=== PATIENT | female | born 1965 | race Caucasian/White ===

== ENCOUNTER 2016-07-10 19:19 | Emergency (ER) | payer SELFPAY ==
[~2016-07-10] VITALS: Ht 152.4 cm; Wt 46.3 kg
[~2016-07-10 19:19] MED LIST: AMOX500T2 PO; CEPH-507 PO; CEPH500C PO; DIPH25CA79 PO; DIPH25TA82 PO; DIPH50CA33 PO; DOXY100C2 PO; HYDR-1231 PO; HYDR-34 PO; HYDR-3730 PO; HYDR-757 PO; IBUP-1773 PO; METH4TAB PO; NAPR-243 PO; NAPR220C11 PO; NITR-65 PO; NITR100C3 PO; ONDA-42 SL; ONDA8TAB9 PO; PRM25T PO; SULF1TAB38 PO; TRAM50TA2 PO; TRM50T PO
--- NOTE | 2016-07-10 20:36 | Diagnostic Imaging Report ---
INDICATION: Bilateral wrist pain for one week. One week ago had tire fall on the wrists, is unable to move or bend the wrists. COMPARISON STUDY: Right hand from 2015. FINDINGS: Three views of the right wrist demonstrate normal ossification. No fracture or dislocation is present. Three views of the left wrist demonstrate normal ossification. No fracture or dislocation is present. IMPRESSION: Normal bilateral wrists. Dictated by: Dictated on workstation # [id number]
[2016-07-10] MEDS ORDERED: METH4TAB PO (20:46)
--- NOTE | 2016-07-10 20:48 | ED Upper Extremity ---
General Chief Complaint: Upper Extremity Stated Complaint: PAIN IN BOTH WRIST Nursing Triage Note: parent reports bilateral wrist pain x 1 week, states 1 week ago she had a tire fall on them Nursing Sepsis Screen: No Definite Risk Source: patient (DIFFICULT TO KEEP ON SUBJECT) History of Present Illness Time seen by provider: 20:00 Initial Comments C/O BILATERAL WRIST PAIN STATES SHE "FELL IN A PIT" AND LANDED ON OUTSTRETCHED HANDS--OCCURRED 1 1/2 WEEKS AGO DENIES ANY OTHER INJURIES NO PARESTHESIAS OR MOTOR DEFICITS HAS NOT TAKEN ANYTHING FOR PAIN HAS NOT SOUGHT CARE UNTIL TODAY SYMPTOMS NO DIFFERENT TODAY PT STATES SHE USES BOTH HANDS EQUALLY STATES SHE THINKS THEY ARE SPRAINED AND WANTS BRACES ON WRISTS Allergies and Home Medications Allergies Coded Allergies: Sulfa (Sulfonamide Antibiotics) (Verified Allergy, Unknown, 07/13/05) Home Medications Diphenhydramine HCl 25 Mg Capsule, 25 MG PO DAILY, (Reported) Methylprednisolone 4 Mg Tab.ds.pk, 4 MG PO UD, #1 Prescribed by: CARLEY JAY on 07/10/162045 Constitutional: no symptoms reported Musculoskeletal: see HPI Skin: no symptoms reported Psychiatric/Neurological: No Symptoms Reported Past [id number] Hx Patient Social History Alcohol Use: Denies Use Recreational Drug Use: No Smoking Status: Current Everyday Smoker Type Used: Cigarettes Recent Foreign Travel: No Contact w/Someone Who Travel: No Recent Infectious Disease Expo: No Recent Hopitalizations: No Immunizations Up To Date Tetanus Booster (TDap): Unknown Date of Influenza Vaccine: Dec 13, 2014 Seasonal Allergies Seasonal Allergies: No Surgeries HX Surgeries: Yes Surgeries: Gallbladder, Hysterectomy Respiratory Hx Respiratory Disorders: Yes Respiratory Disorders: Asthma Cardiovascular Hx Cardiac Disorders: No Neurological Hx Neurological Disorders: No Reproductive System Hx Reproductive Disorders: No Sexually Transmitted Disease: No HIV/AIDS: 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 Genitourinary Hx Genitourinary Disorders: No Gastrointestinal Hx Gastrointestinal Disorders: No Musculoskeletal Hx Musculoskeletal Disorders: No Endocrine Hx Endocrine Disorders: No HEENT HX ENT Disorders: No Cancer Hx Cancer: No Psychosocial Hx Psychiatric Problems: No Integumentary HX Skin/Integumentary Disorder: No Blood Transfusions Hx Blood Disorders: No Adverse Reaction to a Blood Tr: No Family Medical History Family Medial History: Abdominal aortic aneurysm Alcoholism Alzheimer's disease Cancer 03 FATHER 09 BROTHER Completed stroke Dementia Diabetes mellitus Drug abuse Family history: Alzheimer's disease 03 MOTHER Family history: Cardiovascular disease GRANDPARENTS Family history: Diabetes mellitus GRANDPARENTS Family history: Glaucoma GRANDPARENTS Family history: Hypertension GRANDPARENTS Hearing loss 09 SISTER History of - respiratory disease 03 MOTHER Hypertension Myocardial infarction GRANDPARENTS Prostate cancer 03 FATHER Psychosocial problem Seizure disorder 09 SISTER Seizure disorder 09 SISTER No Family History of: AIDS Yaya's disease Aphasia Arthritis Asthma Cancer of mouth Cardiovascular disease Cataracts Colon cancer Congenital disease Congenital heart disease Coronary thrombosis Cystic fibrosis Deafness or hearing loss Dysphasia Family history: Gastrointestinal disease Family history: Thyroid disorder Fibrocystic disease of breast Gastroenteritis Glaucoma Headache disorder Hypercholesterolemia Infertility Kidney disease Myocardial infarction Neoplasm Not obtainable due to adoption Osteoporosis Parkinson's disease Respiratory disorder Severe allergy Stroke Thyroid disease Tuberculosis Visual disorder Physical Exam Vital Signs Vital Sign - Last 12Hours 07/10/16 19:59 Temp 98.2 Pulse 93 Resp 18 B/P (MAP) 126/81 Pulse Ox 98 Capillary Refill : Less Than 3 Seconds General Appearance: WD/WN, no apparent distress, other (CONSTANT MOVEMENTS -- UNABLE TO SIT, PACING, CONSTANT MOVEMENTS OF ENTIRE BODY AND MOUTH. TALKS RAPIDLY NON-STOP, UNABLE TO KEEP PT ON SUBJECT--VERY DIFFICULT TO FOLLOW. SPEECH RAPID AND MUMBLING AND DIFFICULT TO UNDERSTAND AT TIMES. 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 SCARS TO FACE AND ARMS. ) Splinting and Joint Reduction : Splints: Colles Wrist Progress/Results/Core Measures Results/Orders My Orders Orders - CARLEY JAY DO Wrist,Bilat,3 Views Or More (07/10/16 20:02) Wrist-[place] (07/10/16 20:47) Wrist-[place] (07/10/16 20:47) Vital Signs/I&O Vital Sign - Last 12Hours 07/10/16 07/10/16 19:59 20:57 Temp 98.2 98.2 Pulse 93 93 Resp 18 18 B/P (MAP) 126/81 Pulse Ox 98 98 Blood Pressure Mean: 96 Diagnostic Imaging Comments XRAYS BILATERAL WRISTS--NO ACUTE PROCESS, PER RADIOLOGIST REPORT @ 2046 Departure Impression Impression: Primary Impression: BILATERAL WRIST SPRAINS Disposition: 01 HOME, SELF-CARE Condition: Stable Departure-Patient Inst. Referrals: NO,LOCAL PHYSICIAN (PCP/Family) Primary Care Physician Patient Instructions: Wrist Sprain (DC) Add. Discharge Instructions: WEAR SPLINTS NEEDED FOR COMFORT FOLLOW UP WITH DR OF CHOICE IN 1 WEEK FOR RECHECK All discharge instructions reviewed with patient and/or family. Voiced understanding. Scripts Methylprednisolone (Medrol) 4 Mg Tab.ds.pk 4 MG PO UD, #1 PKG Prov: CARLEY JAY DO 07/10/16 CARLEY JAY DO July 10, 2016 20:47
[2016-07-10 20:57] VITALS: BP 126/81
== END 2016-07-10 20:56 | disposition home or self-care (01) ==
LOC: EDUNIT# 19:19 → ER 19:22
DX: S63.501A Unspecified sprain of right wrist, initial encounter (principal); S63.502A Unspecified sprain of left wrist, initial encounter; F17.210 Nicotine dependence, cigarettes, uncomplicated; W20.8XXA Other cause of strike by thrown, projected or falling object, initial encounter; Y99.8 Other external cause status
CPT/HCPCS: 99284